=== PATIENT | female | born 1940 | race Caucasian/White ===

== ENCOUNTER 2021-02-08 08:50 | Inpatient (IN) | payer MEDICAID, MEDICARE ==
[~2021-02-08] VITALS: Ht 162.6 cm; Wt 105.2 kg
--- NOTE | 2021-02-08 08:55 | NUR ---
Pt or family unable to provide any information about current home medications.
--- NOTE | 2021-02-08 09:00 | NUR ---
Dr Jesus at the bedside for MSE.
[2021-02-08 09:37] LABS: CREATININE 1.1 mg/dL (0.6-1.3); POTASSIUM 3.8 mmol/L (3.5-5.1)
[2021-02-08 09:43] LABS: HEMATOCRIT 41.3 % (31.2-41.9); MEAN CORPUSCULAR HEMOGLOBIN 30.3 uug (24.7-32.8); MEAN CORPUSCULAR VOLUME 92.8 fL (75.5-95.3); PLATELET COUNT (AUTO) 181 K/uL (179-408)
[2021-02-08] MEDS ORDERED: ASPIRIN 81 MG TAB.CHEW PO ONE (09:45)
[2021-02-08] MEDS ORDERED: NITROGLYCERIN OINT 1 GM PACKET TP ONE (09:45)
[2021-02-08 09:50] LABS: BILIRUBIN,DIRECT 0.1 mg/dL (0.0-0.2); BILIRUBIN,TOTAL 0.3 mg/dL (0.2-1.0); TOTAL PROTEIN, SERUM 6.1 g/dL (6.4-8.2)
--- NOTE | 2021-02-08 11:25 | NUR ---
Pt trasfered to room 330, Tele.
[2021-02-08 11:48] VITALS: BP 148/70
[2021-02-08] MEDS ORDERED: ALBUTEROL SULFATE 1.25 MG/3 ML NEBU NEB PRN (15:00)
[2021-02-08] MEDS ORDERED: ONDANSETRON 4 MG/2 ML VIAL IV PRN (15:00)
[2021-02-08] MEDS ORDERED: ENALAPRILAT DIHYDRATE 1.25 MG/1 ML VIAL IV PRN (15:15)
[2021-02-08] MEDS ORDERED: HYDROCODONE/APAP 5-325MG TABLET PO PRN (15:15)
[2021-02-08 15:44] VITALS: BP 99/36
[2021-02-08] MEDS: MORPHINE SULFATE 2 MG/1 ML DISP.SYRIN IV PRN (17:33)
[2021-02-08] MEDS: RIVAROXABAN 15 MG TABLET PO SCH (17:33)
[2021-02-08 20:13] VITALS: BP 124/58
[2021-02-08] MEDS: LATANOPROST OPHT DROP 2.5 ML BOTTLE EACHEYE SCH (21:02)
[2021-02-08] MEDS: DOCUSATE SODIUM 100 MG CAPSULE PO SCH (21:02)
[2021-02-08] MEDS: GABAPENTIN 300 MG CAPSULE PO SCH (21:02)
[2021-02-08] MEDS: CELECOXIB 100 MG CAPSULE PO SCH (21:03)
[2021-02-08] MEDS: AMLODIPINE 5 MG TABLET PO SCH (21:03)
[2021-02-09 00:20] VITALS: BP 120/63
--- NOTE | 2021-02-09 02:20 | NUR ---
Received pt awake on bed with no respiratory distress noted. On room air saturating at 94-98%. She is [place]-speaking with little [place] Citizen, communicated by hand gestures. She is anxious and gets frustrated when not understood right. Controlled A-Fib on Tele. Toileting assistance rendered as needed. All due medications crushed with applesauce, tolerated well. All needs attended. Call light placed within reach. Will continue to monitor.
[2021-02-09 04:00] VITALS: BP 110/78
[2021-02-09 05:43] LABS: ABG BASE EXCESS 1.8 mmol/L; ABG HCO3 24.9 mmol/L; ABG PCO2 34.3 mmHg (35.0-45.0); ABG PH 7.479 (7.350-7.450); ABG SITE RIGHT RADIAL; ABG TOTAL HEMOGLOBIN 13.4 G/dL (12.0-16.0); COHb 1.3 % (0.5-1.5); MetHb 0.2 % (0.0-1.5); O2Hb 97.1 % (94.0-97.0); VENT MODE Room Air
--- NOTE | 2021-02-09 05:44 | NUR ---
Pt slept intermittently throughout the night, no s/sx of respiratory distress noted. She is easily arousable for care. Controlled A-fib on Tele. No complaints of pain and discomfort made. All needs attended. Call light placed within reach. Frequent visual checks done. Will endorse to next shift for continuity of care.
[2021-02-09] MEDS: PANTOPRAZOLE SODIUM 40 MG TABLET.DR PO SCH (06:05)
[2021-02-09 06:38] LABS: BILIRUBIN,TOTAL 0.3 mg/dL (0.2-1.0); CREATININE 0.9 mg/dL (0.6-1.3); MAGNESIUM 2.5 mg/dL (1.8-2.4); PHOSPHOROUS 3.7 mg/dL (2.5-4.9); POTASSIUM 4.1 mmol/L (3.5-5.1); TOTAL PROTEIN, SERUM 6.1 g/dL (6.4-8.2); URIC ACID 6.9 mg/dL (2.6-6.0)
[2021-02-09 06:40] LABS: MEAN CORPUSCULAR HEMOGLOBIN 30.5 uug (24.7-32.8); MEAN CORPUSCULAR VOLUME 92.1 fL (75.5-95.3); PLATELET COUNT (AUTO) 171 K/uL (179-408)
[2021-02-09 06:46] LABS: THYROID STIMULATING HORMONE 1.201 mIU/mL (0.358-3.740)
--- NOTE | 2021-02-09 07:51 | NUR ---
received patient laying in bed sleeping in no apparent distress at this time. call light within reach, side rails up x2.
[2021-02-09] MEDS ORDERED: METOPROLOL SUCCINATE XL 25 MG TAB.SR.24H PO SCH (09:00)
[2021-02-09] MEDS: AMLODIPINE 5 MG TABLET PO SCH ×2 (09:04→20:46)
[2021-02-09] MEDS: GABAPENTIN 300 MG CAPSULE PO SCH ×2 (09:04→20:17)
[2021-02-09] MEDS: FUROSEMIDE 20 MG/2 ML VIAL IV SCH (09:04)
[2021-02-09] MEDS: ASPIRIN EC 81 MG TABLET.DR PO SCH (09:04)
[2021-02-09] MEDS: CELECOXIB 100 MG CAPSULE PO SCH ×2 (09:04→20:21)
[2021-02-09] MEDS: DONEPEZIL 10 MG TABLET PO SCH (09:05)
[2021-02-09] MEDS: ISOSORBIDE MONONITRATE 30 MG TAB.SR.24H PO SCH (09:05)
[2021-02-09 09:07] VITALS: BP 133/63
[2021-02-09] MEDS: MORPHINE SULFATE 2 MG/1 ML DISP.SYRIN IV PRN (11:02)
[2021-02-09 11:06] VITALS: BP 123/58
[2021-02-09 15:09] VITALS: BP 138/43
[2021-02-09] MEDS: RIVAROXABAN 15 MG TABLET PO SCH (17:17)
--- NOTE | 2021-02-09 17:40 | NUR ---
New order from Dr. Serrato for Miralax 17g to give oral x1 now. order noted and carried out.
[2021-02-09] MEDS ORDERED: MIRALAX 17 GM POWD.PACK PO ONE (17:45)
--- NOTE | 2021-02-09 18:14 | NUR ---
patient had a large BM, offered x1 miralax po states she doesnt need it refused x3, risks and benefits explained.
--- NOTE | 2021-02-09 18:33 | NUR ---
patient currently sitting at the edge of the bed in no apparent distress. patient no longer on telemetry. v/s wnl at this time. patient denies any pain or discomfort. reminded to use call light for help. side rails up x2, call light within reach, bed side table at side and within reach.
--- NOTE | 2021-02-09 19:50 | NUR ---
Received patient lying in bed. AAOX4. No acute distress noted. Patient denies SOB, chest pain or dizziness. On O2 at 2Lpm via NC in placed. O2 sat at 96%. IV site is on right forearm, intact and patent with no redness or swelling noted. Safety measures initiated, call light within reach and bed alarm activated. Will continue to monitor.
[2021-02-09 20:07] VITALS: BP 110/53
[2021-02-09] MEDS ORDERED: ALLO100T PO (20:09)
[2021-02-09] MEDS ORDERED: METO-357 PO (20:09)
[2021-02-09] MEDS ORDERED: SIME80TA15 PO (20:10)
[2021-02-09] MEDS ORDERED: SPIR25TA6 PO (20:10)
[2021-02-09] MEDS ORDERED: DOCU100C36 PO (20:10)
[2021-02-09] MEDS ORDERED: FURO40TA5 PO (20:11)
[2021-02-09] MEDS ORDERED: FAMO20TA8 PO (20:11)
[2021-02-09] MEDS ORDERED: LOSA50TA39 PO (20:12)
[2021-02-09] MEDS ORDERED: LATA2.5D15 OP (20:14)
[2021-02-09] MEDS ORDERED: ALBU18HF2 IH (20:15)
[2021-02-09] MEDS ORDERED: DONE10TA44 PO (20:16)
[2021-02-09] MEDS: DOCUSATE SODIUM 100 MG CAPSULE PO SCH (20:17)
[2021-02-09] MEDS ORDERED: MONT10TA22 PO (20:17)
[2021-02-09] MEDS ORDERED: CELE100C PO (20:17)
[2021-02-09] MEDS ORDERED: FLUT1DIS28 IH (20:18)
[2021-02-09] MEDS ORDERED: TIOT18CA3 IH (20:18)
[2021-02-09] MEDS ORDERED: DULO60CA45 PO (20:19)
[2021-02-09] MEDS ORDERED: GABA300C PO (20:20)
[2021-02-09] MEDS: LATANOPROST OPHT DROP 2.5 ML BOTTLE EACHEYE SCH (20:20)
[2021-02-09] MEDS ORDERED: ZILE600T5 PO (20:20)
[2021-02-09] MEDS ORDERED: ATOR80TA PO (20:21)
[2021-02-10] MEDS: ACETAMINOPHEN 325 MG TABLET PO PRN (00:16)
[2021-02-10 04:22] VITALS: BP 134/57
--- NOTE | 2021-02-10 06:05 | NUR ---
Patient slept throughout the night. On O2 2Lpm on NC. Denies any SOB. Complained of headache, tylenol 650mg PO x1 given and effective. No acute distress noted. All needs attended to and met. Safety measures maintained and call light within reach.
[2021-02-10] MEDS: PANTOPRAZOLE SODIUM 40 MG TABLET.DR PO SCH (06:09)
--- NOTE | 2021-02-10 08:00 | NUR ---
AWAKE ALERT AND ORIENTED X3, [place] SPEAKING, SITTING AT THE EDGE OF BED AND REQUIRES MINIMAL ASSISTANCE IN ALL ADLS. O2 2L NC SATURATING 92%
[2021-02-10] MEDS: GABAPENTIN 300 MG CAPSULE PO SCH ×2 (08:01→20:11)
[2021-02-10] MEDS: ASPIRIN EC 81 MG TABLET.DR PO SCH (08:01)
[2021-02-10] MEDS: FUROSEMIDE 20 MG/2 ML VIAL IV SCH (08:01)
[2021-02-10] MEDS: AMLODIPINE 5 MG TABLET PO SCH ×2 (08:02→20:22)
[2021-02-10] MEDS: DONEPEZIL 10 MG TABLET PO SCH (08:02)
[2021-02-10] MEDS: ISOSORBIDE MONONITRATE 30 MG TAB.SR.24H PO SCH (08:02)
[2021-02-10] MEDS: CELECOXIB 100 MG CAPSULE PO SCH ×2 (08:06→20:37)
[2021-02-10 11:00] VITALS: BP 138/62
--- NOTE | 2021-02-10 12:00 | NUR ---
RESTING COMFORTABLY IN BED DENIES PAIN OR SOB, CONTINUE CURRENT TX PLAN
[2021-02-10 15:08] VITALS: BP 121/45
--- NOTE | 2021-02-10 15:50 | NUR ---
NO ACUTE CHANGE FROM FROM MORNING ASSESSMENT, O2 2L NC SATURATING 93-94% .
[2021-02-10] MEDS ORDERED: FUROSEMIDE 20 MG/2 ML VIAL IV ONE (17:00)
[2021-02-10] MEDS: RIVAROXABAN 15 MG TABLET PO SCH (17:12)
[2021-02-10] MEDS: DOCUSATE SODIUM 100 MG CAPSULE PO SCH (20:10)
[2021-02-10] MEDS: LATANOPROST OPHT DROP 2.5 ML BOTTLE EACHEYE SCH (20:12)
--- NOTE | 2021-02-10 20:38 | NUR ---
Received patient lying in bed. AAOX4. No acute distress noted. Patient denies SOB, chest pain or dizziness. On O2 at 2Lpm via NC in placed. O2 sat is at 95%. IV site is on right forearm, intact and patent with no redness or swelling noted. Safety measures initiated, call light within reach and bed alarm activated. Will continue to monitor.
[2021-02-10 20:39] VITALS: BP 138/60
[2021-02-11] MEDS: ACETAMINOPHEN 325 MG TABLET PO PRN (01:15)
[2021-02-11 04:10] VITALS: BP 147/48
--- NOTE | 2021-02-11 05:49 | NUR ---
Patient slept intermittently through the night. Patient complained of having chest tightness, offered [place] 5-325mg or Morphine 1mg/1ml, however, patient refused. Instructed patient to do non-pharmacological interventions to manage pain. Elevated the HOB and instructed to do deep breathing exercises. Safety and comfort measures maintained, call light within reach. All needs attended and met.
[2021-02-11] MEDS: PANTOPRAZOLE SODIUM 40 MG TABLET.DR PO SCH (06:44)
[2021-02-11] MEDS: FUROSEMIDE 20 MG TABLET PO SCH (08:01)
[2021-02-11] MEDS: SPIRONOLACTONE 25 MG TABLET PO SCH (08:01)
[2021-02-11] MEDS: ISOSORBIDE MONONITRATE 30 MG TAB.SR.24H PO SCH (08:01)
[2021-02-11] MEDS: ALLOPURINOL 100 MG TABLET PO SCH (08:01)
[2021-02-11] MEDS: DULOXETINE 60 MG CAPSULE.DR PO SCH (08:01)
[2021-02-11] MEDS: DONEPEZIL 10 MG TABLET PO SCH (08:01)
[2021-02-11] MEDS: GABAPENTIN 300 MG CAPSULE PO SCH ×2 (08:01→20:01)
[2021-02-11] MEDS: ASPIRIN EC 81 MG TABLET.DR PO SCH (08:02)
[2021-02-11] MEDS: AMLODIPINE 5 MG TABLET PO SCH ×2 (08:02→20:01)
[2021-02-11] MEDS: CELECOXIB 100 MG CAPSULE PO SCH ×2 (08:04→20:00)
[2021-02-11 10:20] LABS: HEMATOCRIT 37.3 % (31.2-41.9); MEAN CORPUSCULAR HEMOGLOBIN 30.6 uug (24.7-32.8); MEAN CORPUSCULAR VOLUME 93.4 fL (75.5-95.3); PLATELET COUNT (AUTO) 177 K/uL (179-408)
[2021-02-11 10:25] LABS: CREATININE 1.1 mg/dL (0.6-1.3); MAGNESIUM 2.1 mg/dL (1.8-2.4); POTASSIUM 3.7 mmol/L (3.5-5.1)
[2021-02-11 12:00] VITALS: BP 110/61
[2021-02-11 16:33] VITALS: BP 112/49
[2021-02-11] MEDS: RIVAROXABAN 15 MG TABLET PO SCH (17:04)
[2021-02-11] MEDS: DOCUSATE SODIUM 100 MG CAPSULE PO SCH (20:00)
[2021-02-11] MEDS: LATANOPROST OPHT DROP 2.5 ML BOTTLE EACHEYE SCH (20:01)
[2021-02-11 20:40] VITALS: BP 132/39
[2021-02-12 04:48] VITALS: BP 134/48
[2021-02-12] MEDS: PANTOPRAZOLE SODIUM 40 MG TABLET.DR PO SCH (06:04)
[2021-02-12] MEDS: DONEPEZIL 10 MG TABLET PO SCH (08:35)
[2021-02-12] MEDS: SPIRONOLACTONE 25 MG TABLET PO SCH (08:35)
[2021-02-12] MEDS: DULOXETINE 60 MG CAPSULE.DR PO SCH (08:35)
[2021-02-12] MEDS: GABAPENTIN 300 MG CAPSULE PO SCH (08:36)
[2021-02-12] MEDS: ASPIRIN EC 81 MG TABLET.DR PO SCH (08:36)
[2021-02-12] MEDS: ISOSORBIDE MONONITRATE 30 MG TAB.SR.24H PO SCH (08:36)
[2021-02-12] MEDS: ALLOPURINOL 100 MG TABLET PO SCH (08:36)
[2021-02-12] MEDS: AMLODIPINE 5 MG TABLET PO SCH (08:36)
[2021-02-12] MEDS: FUROSEMIDE 20 MG TABLET PO SCH (08:36)
[2021-02-12] MEDS: CELECOXIB 100 MG CAPSULE PO SCH (08:37)
[2021-02-12] MEDS ORDERED: CLOTRIMAZOLE/BETAMET DIPROP CREAM 15 GM TUBE TOP SCH (09:00)
[2021-02-12 11:49] VITALS: BP 132/64
[2021-02-12] MEDS ORDERED: ALPR0.5T8 PO (14:59)
[2021-02-12] MEDS ORDERED: ASPI-618 PO (14:59)
[2021-02-12] MEDS ORDERED: ISOS30TA86 PO (14:59)
[2021-02-12] MEDS ORDERED: RIVA15TA PO (14:59)
[2021-02-12] MEDS ORDERED: METO-356 PO (14:59)
[2021-02-12 15:34] VITALS: BP 127/52
[2021-02-12] MEDS: RIVAROXABAN 15 MG TABLET PO SCH (18:00)
--- NOTE | 2021-02-12 19:25 | NUR ---
Patient discharge instructions given to daughter. To be discharged home. Vital signs stable. No acute distress noted. Skin intact. Left forearm 20g IV removed. Catheter tip intact. No signs of bleeding or infection noted. All belongings gathered and sent home with patient. Assisted with all needs
== END 2021-02-12 22:43 | disposition home or self-care (01) | DRG 194 ==
LOC: ER 08:50 → TELE3 10:48 → MEDSURG3 02-09 18:06
PROVIDERS: ADMIT Internal Medicine; ATTEND Internal Medicine
DX: I11.0 Hypertensive heart disease with heart failure (principal); E44.0 Moderate protein-calorie malnutrition; D68.59 Other primary thrombophilia; M94.0 Chondrocostal junction syndrome [Tietze]; E88.09 Other disorders of plasma-protein metabolism, not elsewhere classified; K86.89 Other specified diseases of pancreas; Z79.01 Long term (current) use of anticoagulants; I48.20 Chronic atrial fibrillation, unspecified; I25.10 Atherosclerotic heart disease of native coronary artery without angina pectoris; I50.31 Acute diastolic (congestive) heart failure; E66.01 Morbid (severe) obesity due to excess calories; E78.5 Hyperlipidemia, unspecified; F32.A Depression, unspecified; F41.9 Anxiety disorder, unspecified; G31.84 Mild cognitive impairment of uncertain or unknown etiology; G89.29 Other chronic pain; J44.9 Chronic obstructive pulmonary disease, unspecified; K21.9 Gastro-esophageal reflux disease without esophagitis; Z20.822 Contact with and (suspected) exposure to COVID-19; Z90.49 Acquired absence of other specified parts of digestive tract; Z90.710 Acquired absence of both cervix and uterus; Z74.09 Other reduced mobility; M19.90 Unspecified osteoarthritis, unspecified site; Z68.39 Body mass index [BMI] 39.0-39.9, adult; K59.00 Constipation, unspecified
CPT/HCPCS: 36415; 36600; 70030-TC; 71045; 83690; 83735; 84100; 84443; 84550; 85025; 86140; 93005; 93307; 94640; 97161; A4663; G0378; J1940; J2270; J8499

== ENCOUNTER 2021-05-20 13:56 | Inpatient (IN) | payer MEDICARE, MEDICAID ==
[~2021-05-20] VITALS: Ht 162.6 cm; Wt 103.9 kg
[~2021-05-20 13:56] MED LIST: ALBU18HF2 IH; ALLO100T PO; ALPR0.5T8 PO; ASPI-618 PO; CELE100C PO; DOCU100C36 PO; DONE10TA44 PO; DULO60CA45 PO; FAMO20TA8 PO; FLUT1DIS28 IH; FURO40TA5 PO; GABA300C PO; ISOS30TA86 PO; LATA2.5D15 OP; METO-356 PO; RIVA15TA PO; SPIR25TA6 PO
[2021-05-20 15:36] LABS: HEMATOCRIT 39.6 % (31.2-41.9); MEAN CORPUSCULAR HEMOGLOBIN 29.6 uug (24.7-32.8); MEAN CORPUSCULAR VOLUME 91.6 fL (75.5-95.3); PLATELET COUNT (AUTO) 112 K/uL (179-408)
[2021-05-20 15:40] LABS: CREATININE 0.9 mg/dL (0.6-1.3)
[2021-05-20 16:00] LABS: BILIRUBIN,DIRECT 0.1 mg/dL (0.0-0.2); BILIRUBIN,TOTAL 0.3 mg/dL (0.2-1.0); TOTAL PROTEIN, SERUM 6.6 g/dL (6.4-8.2)
[2021-05-20] MEDS ORDERED: CEFTRIAXONE 1 G VIAL IM ONE (17:00)
[2021-05-20] MEDS ORDERED: AZITHROMYCIN IV 500 MG in IV DEXTROSE 5% 250 ML IV ONE (17:00)
[2021-05-20] MEDS ORDERED: CEFTRIAXONE /D5W 50ML IVPB **ER PYXIS IV ONE (17:28)
[2021-05-20] MEDS ORDERED: AZITHROMYCIN 500MG/ D5W 250ML IVPB **ER PYXIS ONLY IV ONE (17:38)
[2021-05-20 19:53] LABS: *BILIRUBIN,URIN NEGATIVE (NEGATIVE); *BLOOD, URINE 2+ (NEGATIVE); *CLARITY,URINE CLEAR (CLEAR); *COLOR,URINE YELLOW (YELLOW); *KETONES,URINE NEGATIVE (NEGATIVE); *UROBILINOGEN,URINE 0.2 E.U./dl (NORMAL); LEUKOCYTE ESTERASE ,URINE NEGATIVE (NEGATIVE); NITRITE, URINE NEGATIVE (NEGATIVE); UGLUCOSE NEGATIVE (NEGATIVE)
[2021-05-20] MEDS ORDERED: AZITHROMYCIN IV 500 MG in IV DEXTROSE 5% 250 ML IV SCH (20:00)
[2021-05-20] MEDS ORDERED: ALPRAZOLAM 0.5 MG TABLET PO PRN (20:00)
[2021-05-20] MEDS ORDERED: MORPHINE SULFATE 2 MG/1 ML DISP.SYRIN IV PRN (20:00)
[2021-05-20 20:25] LABS: BACTERIA,URINE NONE SEEN /HPF (NONE SEEN); RBC,URINE 0-3 /HPF (0-3); SQUAMOUS EPITHELIAL CELL,UR FEW /HPF (NONE SEEN); WBC,URINE 0-3 /HPF (0-3)
[2021-05-20] MEDS ORDERED: LORAZEPAM 2 MG/1 ML VIAL ONE (23:29)
[2021-05-21] MEDS ORDERED: ALPRAZOLAM 0.5 MG TABLET ONE ×2 (01:17→16:56)
[2021-05-21 06:03] LABS: HEMATOCRIT 42.1 % (31.2-41.9); MEAN CORPUSCULAR HEMOGLOBIN 29.5 uug (24.7-32.8); MEAN CORPUSCULAR VOLUME 90.9 fL (75.5-95.3); PLATELET COUNT (AUTO) 166 K/uL (179-408)
[2021-05-21 06:20] LABS: BILIRUBIN,TOTAL 0.3 mg/dL (0.2-1.0); CREATININE 0.8 mg/dL (0.6-1.3); PHOSPHOROUS 3.4 mg/dL (2.5-4.9); POTASSIUM 3.6 mmol/L (3.5-5.1); TOTAL PROTEIN, SERUM 7.4 g/dL (6.4-8.2)
[2021-05-21] MEDS ORDERED: ALBUTEROL SULFATE 2.5 MG/3 ML NEBU NEB PRN (08:00)
[2021-05-21] MEDS ORDERED: FUROSEMIDE 20 MG/2 ML VIAL ONE (08:32)
[2021-05-21] MEDS ORDERED: DOCUSATE SODIUM 100 MG CAPSULE PO ONE ×2 (08:33→17:10)
[2021-05-21] MEDS ORDERED: GABAPENTIN 300 MG CAPSULE ONE ×2 (08:36→17:09)
[2021-05-21] MEDS ORDERED: METOPROLOL SUCCINATE XL 25 MG TAB.SR.24H PO ONE (08:37)
[2021-05-21] MEDS ORDERED: FAMOTIDINE 20 MG TABLET ONE (08:37)
[2021-05-21] MEDS: DOCUSATE SODIUM 100 MG CAPSULE PO SCH ×2 (08:38→17:02)
[2021-05-21] MEDS ORDERED: ALLOPURINOL 100 MG TABLET ONE (08:38)
[2021-05-21] MEDS: FAMOTIDINE 20 MG TABLET PO SCH (08:38)
[2021-05-21] MEDS: GABAPENTIN 300 MG CAPSULE PO SCH ×2 (08:38→17:02)
[2021-05-21] MEDS: ASPIRIN EC 81 MG TABLET.DR PO SCH (08:38)
[2021-05-21] MEDS: METOPROLOL SUCCINATE XL 25 MG TAB.SR.24H PO SCH (08:39)
[2021-05-21] MEDS: DULOXETINE 60 MG CAPSULE.DR PO SCH (08:40)
[2021-05-21] MEDS: ALLOPURINOL 100 MG TABLET PO SCH (08:40)
[2021-05-21] MEDS: ISOSORBIDE MONONITRATE 30 MG TAB.SR.24H PO SCH (08:40)
[2021-05-21] MEDS: SPIRONOLACTONE 25 MG TABLET PO SCH (08:40)
[2021-05-21] MEDS ORDERED: ASPIRIN EC 81 MG TABLET.DR PO ONE (08:41)
[2021-05-21] MEDS: FLUTICASONE/VILANTEROL 1 EACH BLST.W.DEV IH SCH (08:41)
[2021-05-21] MEDS ORDERED: FUROSEMIDE 20 MG/2 ML VIAL IV ONE (09:00)
[2021-05-21] MEDS ORDERED: CELECOXIB 100 MG CAPSULE PO SCH (09:00)
[2021-05-21] MEDS: ALPRAZOLAM 0.5 MG TABLET PO PRN (16:48)
[2021-05-21] MEDS ORDERED: CEFTRIAXONE 1 G in IV DEXTROSE 5% 50 ML IV SCH (17:00)
[2021-05-21] MEDS ORDERED: CEFTRIAXONE /D5W 50ML IVPB **ER PYXIS IV ONE (17:01)
[2021-05-21] MEDS: AZITHROMYCIN 250 MG TABLET PO SCH (17:02)
[2021-05-21] MEDS: RIVAROXABAN 15 MG TABLET PO SCH (17:06)
[2021-05-21] MEDS ORDERED: AZITHROMYCIN 250 MG TABLET ONE (17:10)
[2021-05-21] MEDS ORDERED: RIVAROXABAN 15 MG TABLET ONE (17:14)
[2021-05-21 18:52] VITALS: BP 123/58
[2021-05-21] MEDS: DONEPEZIL 10 MG TABLET PO SCH (21:23)
[2021-05-21] MEDS ORDERED: DONEPEZIL 5 MG TABLET ONE (21:23)
[2021-05-21] MEDS: LATANOPROST OPHT DROP 2.5 ML BOTTLE EACHEYE SCH (21:23)
[2021-05-22 00:40] VITALS: BP 141/70
[2021-05-22 04:00] VITALS: BP 147/66
[2021-05-22 06:45] LABS: HEMATOCRIT 39.6 % (31.2-41.9); MEAN CORPUSCULAR HEMOGLOBIN 29.8 uug (24.7-32.8); MEAN CORPUSCULAR VOLUME 92.2 fL (75.5-95.3); PLATELET COUNT (AUTO) 125 K/uL (179-408)
[2021-05-22 07:01] LABS: MAGNESIUM 2.2 mg/dL (1.8-2.4); PHOSPHOROUS 4.9 mg/dL (2.5-4.9)
[2021-05-22] MEDS: DOCUSATE SODIUM 100 MG CAPSULE PO SCH ×2 (09:07→17:13)
[2021-05-22] MEDS: ASPIRIN EC 81 MG TABLET.DR PO SCH (09:07)
[2021-05-22] MEDS: ALLOPURINOL 100 MG TABLET PO SCH (09:07)
[2021-05-22] MEDS: DULOXETINE 60 MG CAPSULE.DR PO SCH (09:07)
[2021-05-22] MEDS: FAMOTIDINE 20 MG TABLET PO SCH (09:07)
[2021-05-22] MEDS: SPIRONOLACTONE 25 MG TABLET PO SCH (09:07)
[2021-05-22] MEDS: GABAPENTIN 300 MG CAPSULE PO SCH ×2 (09:07→17:13)
[2021-05-22] MEDS: ISOSORBIDE MONONITRATE 30 MG TAB.SR.24H PO SCH (09:08)
[2021-05-22] MEDS: METOPROLOL SUCCINATE XL 25 MG TAB.SR.24H PO SCH (09:08)
[2021-05-22] MEDS: CEFTRIAXONE 2 G in IV DEXTROSE 5% 100 ML IV SCH (09:32)
[2021-05-22 12:38] VITALS: BP 120/53
[2021-05-22] MEDS: FLUTICASONE/VILANTEROL 1 EACH BLST.W.DEV IH SCH (14:27)
[2021-05-22 16:38] VITALS: BP 121/61
[2021-05-22] MEDS: ACETAMINOPHEN 325 MG TABLET PO PRN (17:13)
[2021-05-22] MEDS: AZITHROMYCIN 250 MG TABLET PO SCH (17:13)
[2021-05-22] MEDS: ALPRAZOLAM 0.5 MG TABLET PO PRN (17:13)
[2021-05-22] MEDS: RIVAROXABAN 15 MG TABLET PO SCH (17:14)
[2021-05-22 20:32] VITALS: BP 122/59
[2021-05-22] MEDS: DONEPEZIL 10 MG TABLET PO SCH (20:41)
[2021-05-22] MEDS: LATANOPROST OPHT DROP 2.5 ML BOTTLE EACHEYE SCH (20:42)
[2021-05-23 00:38] VITALS: BP 132/50
[2021-05-23 04:32] VITALS: BP 134/52
[2021-05-23 06:55] LABS: HEMATOCRIT 37.9 % (31.2-41.9); MEAN CORPUSCULAR HEMOGLOBIN 29.7 uug (24.7-32.8); MEAN CORPUSCULAR VOLUME 92.3 fL (75.5-95.3); PLATELET COUNT (AUTO) 131 K/uL (179-408)
[2021-05-23 07:13] LABS: CREATININE 0.8 mg/dL (0.6-1.3); MAGNESIUM 1.9 mg/dL (1.8-2.4); PHOSPHOROUS 2.7 mg/dL (2.5-4.9); POTASSIUM 3.9 mmol/L (3.5-5.1)
[2021-05-23] MEDS: ALPRAZOLAM 0.5 MG TABLET PO PRN ×2 (07:47→20:51)
[2021-05-23] MEDS: FLUTICASONE/VILANTEROL 1 EACH BLST.W.DEV IH SCH (08:00)
[2021-05-23] MEDS: CEFTRIAXONE 2 G in IV DEXTROSE 5% 100 ML IV SCH (08:00)
[2021-05-23] MEDS: ISOSORBIDE MONONITRATE 30 MG TAB.SR.24H PO SCH (08:03)
[2021-05-23] MEDS: FAMOTIDINE 20 MG TABLET PO SCH (08:04)
[2021-05-23] MEDS: GABAPENTIN 300 MG CAPSULE PO SCH ×2 (08:04→16:41)
[2021-05-23] MEDS: DOCUSATE SODIUM 100 MG CAPSULE PO SCH ×2 (08:04→16:42)
[2021-05-23] MEDS: SPIRONOLACTONE 25 MG TABLET PO SCH (08:04)
[2021-05-23] MEDS: METOPROLOL SUCCINATE XL 25 MG TAB.SR.24H PO SCH (08:04)
[2021-05-23] MEDS: ALLOPURINOL 100 MG TABLET PO SCH (08:04)
[2021-05-23] MEDS: DULOXETINE 60 MG CAPSULE.DR PO SCH (08:04)
[2021-05-23] MEDS: ASPIRIN EC 81 MG TABLET.DR PO SCH (08:04)
[2021-05-23 11:00] VITALS: BP 133/67
[2021-05-23 16:00] VITALS: BP 93/60
[2021-05-23] MEDS: AZITHROMYCIN 250 MG TABLET PO SCH (16:41)
[2021-05-23] MEDS: RIVAROXABAN 15 MG TABLET PO SCH (17:18)
[2021-05-23 20:00] VITALS: BP 142/47
[2021-05-23] MEDS: ACETAMINOPHEN 325 MG TABLET PO PRN (20:51)
[2021-05-23] MEDS: LATANOPROST OPHT DROP 2.5 ML BOTTLE EACHEYE SCH (20:51)
[2021-05-23] MEDS: DONEPEZIL 10 MG TABLET PO SCH (20:51)
[2021-05-24 04:00] VITALS: BP 144/58
[2021-05-24 07:19] LABS: HEMATOCRIT 37.9 % (31.2-41.9); MEAN CORPUSCULAR HEMOGLOBIN 29.5 uug (24.7-32.8); MEAN CORPUSCULAR VOLUME 92.5 fL (75.5-95.3); PLATELET COUNT (AUTO) 125 K/uL (179-408)
[2021-05-24 07:37] LABS: CREATININE 0.8 mg/dL (0.6-1.3); MAGNESIUM 2.2 mg/dL (1.8-2.4); PHOSPHOROUS 3.6 mg/dL (2.5-4.9)
[2021-05-24] MEDS ORDERED: FUROSEMIDE 20 MG/2 ML VIAL IV ONE (08:45)
[2021-05-24] MEDS: CEFTRIAXONE 2 G in IV DEXTROSE 5% 100 ML IV SCH (08:52)
[2021-05-24] MEDS: ASPIRIN EC 81 MG TABLET.DR PO SCH (08:53)
[2021-05-24] MEDS: ACETAMINOPHEN 325 MG TABLET PO PRN (08:53)
[2021-05-24] MEDS: DOCUSATE SODIUM 100 MG CAPSULE PO SCH ×2 (08:54→17:05)
[2021-05-24] MEDS: DULOXETINE 60 MG CAPSULE.DR PO SCH (08:54)
[2021-05-24] MEDS: FAMOTIDINE 20 MG TABLET PO SCH (08:54)
[2021-05-24] MEDS: GABAPENTIN 300 MG CAPSULE PO SCH ×2 (08:54→17:04)
[2021-05-24] MEDS: ALLOPURINOL 100 MG TABLET PO SCH (08:55)
[2021-05-24] MEDS: ISOSORBIDE MONONITRATE 30 MG TAB.SR.24H PO SCH (08:55)
[2021-05-24] MEDS: SPIRONOLACTONE 25 MG TABLET PO SCH (08:55)
[2021-05-24] MEDS: METOPROLOL SUCCINATE XL 25 MG TAB.SR.24H PO SCH (08:55)
[2021-05-24] MEDS: FLUTICASONE/VILANTEROL 1 EACH BLST.W.DEV IH SCH (09:05)
[2021-05-24 11:00] VITALS: BP 134/55
[2021-05-24 16:00] VITALS: BP 145/69
[2021-05-24] MEDS: RIVAROXABAN 15 MG TABLET PO SCH (17:04)
[2021-05-24] MEDS: AZITHROMYCIN 250 MG TABLET PO SCH (17:05)
[2021-05-24 20:00] VITALS: BP 157/66
[2021-05-24] MEDS: DONEPEZIL 10 MG TABLET PO SCH (21:01)
[2021-05-24] MEDS: LATANOPROST OPHT DROP 2.5 ML BOTTLE EACHEYE SCH (21:02)
[2021-05-25 04:00] VITALS: BP 105/49
[2021-05-25] MEDS: DOCUSATE SODIUM 100 MG CAPSULE PO SCH ×2 (09:35→17:27)
[2021-05-25] MEDS: FAMOTIDINE 20 MG TABLET PO SCH (09:35)
[2021-05-25] MEDS: METOPROLOL SUCCINATE XL 25 MG TAB.SR.24H PO SCH (09:35)
[2021-05-25] MEDS: ALLOPURINOL 100 MG TABLET PO SCH (09:35)
[2021-05-25] MEDS: GABAPENTIN 300 MG CAPSULE PO SCH ×2 (09:35→17:27)
[2021-05-25] MEDS: ISOSORBIDE MONONITRATE 30 MG TAB.SR.24H PO SCH (09:35)
[2021-05-25] MEDS: SPIRONOLACTONE 25 MG TABLET PO SCH (09:36)
[2021-05-25] MEDS: ASPIRIN EC 81 MG TABLET.DR PO SCH (09:36)
[2021-05-25] MEDS: DULOXETINE 60 MG CAPSULE.DR PO SCH (09:36)
[2021-05-25] MEDS: FLUTICASONE/VILANTEROL 1 EACH BLST.W.DEV IH SCH (09:36)
[2021-05-25] MEDS: ENSURE ENLIVE (VAN) 240 ML LIQUID PO SCH ×2 (10:10→17:29)
[2021-05-25 11:39] VITALS: BP 150/56
[2021-05-25] MEDS ORDERED: IPRATROPIUM BROMIDE 0.5 MG/2.5 ML NEBU NEB PRN (12:00)
[2021-05-25 15:37] VITALS: BP 134/57
[2021-05-25] MEDS: RIVAROXABAN 15 MG TABLET PO SCH (17:27)
[2021-05-25] MEDS: ACETAMINOPHEN 325 MG TABLET PO PRN (20:36)
[2021-05-25] MEDS: LATANOPROST OPHT DROP 2.5 ML BOTTLE EACHEYE SCH (20:40)
[2021-05-25] MEDS: DONEPEZIL 10 MG TABLET PO SCH (20:40)
[2021-05-25 21:00] VITALS: BP 151/64
[2021-05-26 05:01] VITALS: BP 139/66
[2021-05-26 08:08] LABS: HEMATOCRIT 41.1 % (31.2-41.9); MEAN CORPUSCULAR HEMOGLOBIN 30.5 uug (24.7-32.8); MEAN CORPUSCULAR VOLUME 92.4 fL (75.5-95.3); PLATELET COUNT (AUTO) 145 K/uL (179-408)
[2021-05-26 08:24] LABS: CREATININE 0.8 mg/dL (0.6-1.3); MAGNESIUM 2.4 mg/dL (1.8-2.4); PHOSPHOROUS 3.2 mg/dL (2.5-4.9); POTASSIUM 4.2 mmol/L (3.5-5.1)
[2021-05-26] MEDS: GABAPENTIN 300 MG CAPSULE PO SCH ×2 (09:15→17:08)
[2021-05-26] MEDS: SPIRONOLACTONE 25 MG TABLET PO SCH (09:16)
[2021-05-26] MEDS: ISOSORBIDE MONONITRATE 30 MG TAB.SR.24H PO SCH (09:16)
[2021-05-26] MEDS: METOPROLOL SUCCINATE XL 25 MG TAB.SR.24H PO SCH (09:16)
[2021-05-26] MEDS: FAMOTIDINE 20 MG TABLET PO SCH (09:16)
[2021-05-26] MEDS: DULOXETINE 60 MG CAPSULE.DR PO SCH (09:16)
[2021-05-26] MEDS: ALLOPURINOL 100 MG TABLET PO SCH (09:16)
[2021-05-26] MEDS: DOCUSATE SODIUM 100 MG CAPSULE PO SCH ×2 (09:16→17:08)
[2021-05-26] MEDS: FLUTICASONE/VILANTEROL 1 EACH BLST.W.DEV IH SCH (09:17)
[2021-05-26] MEDS: ENSURE ENLIVE (VAN) 240 ML LIQUID PO SCH ×2 (09:18→17:08)
[2021-05-26] MEDS: ASPIRIN EC 81 MG TABLET.DR PO SCH (10:02)
[2021-05-26 12:09] VITALS: BP 133/48
[2021-05-26 16:00] VITALS: BP 132/67
[2021-05-26] MEDS: RIVAROXABAN 15 MG TABLET PO SCH (17:22)
== END 2021-05-26 18:30 | disposition home or self-care (01) | DRG 139 ==
LOC: ER 13:57 → TRANSITION 05-21 07:33 → TELE3 05-22 00:16 → MEDSURG3 05-23 15:08
PROVIDERS: ADMIT Internal Medicine; ATTEND Internal Medicine
DX: J18.9 Pneumonia, unspecified organism (principal); J96.01 Acute respiratory failure with hypoxia; G92.8 Other toxic encephalopathy; I50.33 Acute on chronic diastolic (congestive) heart failure; K86.89 Other specified diseases of pancreas; D69.6 Thrombocytopenia, unspecified; D68.59 Other primary thrombophilia; I48.20 Chronic atrial fibrillation, unspecified; G31.84 Mild cognitive impairment of uncertain or unknown etiology; J44.9 Chronic obstructive pulmonary disease, unspecified; M19.90 Unspecified osteoarthritis, unspecified site; I11.0 Hypertensive heart disease with heart failure; I25.10 Atherosclerotic heart disease of native coronary artery without angina pectoris; E78.5 Hyperlipidemia, unspecified; K21.9 Gastro-esophageal reflux disease without esophagitis; Z79.01 Long term (current) use of anticoagulants; K59.00 Constipation, unspecified; E66.01 Morbid (severe) obesity due to excess calories; Z68.39 Body mass index [BMI] 39.0-39.9, adult; Z74.09 Other reduced mobility; Z90.710 Acquired absence of both cervix and uterus; Z90.49 Acquired absence of other specified parts of digestive tract; Z20.822 Contact with and (suspected) exposure to COVID-19
CPT/HCPCS: 36415; 70030-TC; 70450; 71045; 71250; 83605; 83735; 84100; 84443; 85025; 85730; 87040; 87086; 93005; 97161; A4663; C1758; G0378; J0456; J0696; J1940; J2060; J7050; J7060; J8499; Q0144